=== PATIENT | female | born 1970 ===

== ENCOUNTER 2018-09-24 19:31 | Emergency (ER) | payer MEDICARE, MEDICAID ==
[2018-09-24 19:34] VITALS: BP 129/73; PULSE 93; RESP 16; TEMP 98.3; O2SAT 98
[2018-09-24 20:43] LABS: BASO % 0.7 % (0.0-2.0); EOS # 0.1 K/uL (0.0-0.7); EOS % 1.1 % (0.0-4.0); HEMOGLOBIN 14.2 g/dL (12.0-16.0); LYMPH # 1.4 K/uL (1.0-4.3); LYMPH % 20.8 % (20.0-40.0); MEAN CELL VOLUME 95.1 fl (81.0-99.0); MEAN CORPUSCULAR HEMOGLOBIN 31.4 pg (27.0-31.0); MEAN PLATELET VOLUME 10.4 fl (7.2-11.7); MONO # 0.6 K/uL (0.0-0.8); MONO % 8.3 % (0.0-10.0); NEUT # 4.7 K/uL (1.8-7.0); NEUT % 69.1 % (50.0-75.0); NRBC % 0.1 % (0.0-0.0); RBC 4.53 Mil/uL (3.80-5.20); RED CELL DISTRIBUTION WIDTH 13.9 % (11.5-14.5); WHITE BLOOD COUNT 6.7 K/uL (4.8-10.8)
[2018-09-24 20:54] LABS: ALB/GLOB RATIO 1.2 (1.0-2.1); ALBUMIN 4.5 g/dL (3.5-5.0); ALT/SGPT 83 U/L (9-52); AST/SGOT 125 U/L (14-36); BLOOD UREA NITROGEN 17 mg/dl (7-17); CALCIUM 9.8 mg/dL (8.4-10.2); GFR NON-AFRICAN AMERICAN > 60
[2018-09-24 21:05] LABS: BARBITURATES, UR NEGATIVE (NEGATIVE); BENZODIAZEPINES, UR NEGATIVE (NEGATIVE); OPIATES, UR NEGATIVE (NEGATIVE); PHENCYCLIDINE, UR NEGATIVE (NEGATIVE)
--- NOTE | 2018-09-24 21:14 | ED PDOC ---
HPI: Psych/Substance Abuse Time Seen by Provider: 09/24/18 19:43 Chief Complaint (Nursing): Alcohol Ingestion Chief Complaint (Provider): Alcohol Ingestion ED Caveat: Intoxicated History Per: Patient History/Exam Limitations: intoxication Current Symptoms Are (Timing): Still Present Additional Complaint(s): Patient is a 47 year old female who presents to the emergency department with EMS for intoxication. Patient was sent from [facility] for evaluation. She admits to drinking alcohol and smoking marijuana. Patient has no specific complaints. PMD: No provider Past Medical History Reviewed: Historical Data, Nursing Documentation, Vital Signs Vital Signs: Last Vital Signs Temp 98.3 F 09/24/18 19:32 Pulse 93 H 09/24/18 19:32 Resp 16 09/24/18 19:32 BP 129/73 09/24/18 19:32 Pulse Ox 98 09/24/18 19:32 - Medical History PMH: No Chronic Diseases - Surgical History Surgical History: No Surg Hx - Family History Family History: States: Unknown Family Hx - Social History Alcohol: Occasional Drugs: Cannabis - Allergies Allergies/Adverse Reactions: Allergies Allergy/AdvReac Type Severity Reaction Status Date / Time No Known Allergies Allergy Verified 09/24/18 19:32 Review of Systems ROS Statement: Except As Marked, All Systems Reviewed And Found Negative Neurological: Positive for: Change in Speech, Other (intoxication) Physical Exam - Reviewed Nursing Documentation Reviewed: Yes Vital Signs Reviewed: Yes - Physical Exam Appears: Positive for: Non-toxic, No Acute Distress Head Exam: Positive for: ATRAUMATIC, NORMOCEPHALIC Skin: Positive for: Normal Color, Warm, Dry Eye Exam: Positive for: Normal appearance, EOMI, PERRL ENT: Positive for: Normal ENT Inspection Neck: Positive for: Normal, Painless ROM, Supple Cardiovascular/Chest: Positive for: Regular Rate, Rhythm. Negative for: Murmur Respiratory: Positive for: Normal Breath Sounds. Negative for: Respiratory Distress Gastrointestinal/Abdominal: Positive for: Normal Exam, Soft. Negative for: Tenderness Back: Positive for: Normal Inspection. Negative for: L CVA Tenderness, R CVA Tenderness, Vertebral Tenderness Extremity: Positive for: Normal ROM. Negative for: Pedal Edema, Deformity Neurologic/Psych: Positive for: Alert, Oriented. Negative for: Motor/Sensory Deficits - Laboratory Results Result Diagrams: 09/24/18 20:24 09/24/18 20:24 Lab Results: Total Bilirubin 0.4 mg/dl (0.2-1.3) 09/24/18 20:24 AST 125 U/L (14-36) H 09/24/18 20:24 ALT 83 U/L (9-52) H 09/24/18 20:24 Alkaline Phosphatase 215 U/L (38-126) H 09/24/18 20:24 Total Protein 8.3 G/DL (6.3-8.2) H 09/24/18 20:24 Albumin 4.5 g/dL (3.5-5.0) 09/24/18 20:24 Globulin 3.8 gm/dL (2.2-3.9) 09/24/18 20:24 Albumin/Globulin Ratio 1.2 (1.0-2.1) 09/24/18 20:24 - ECG O2 Sat by Pulse Oximetry: 98 (RA) Pulse Ox Interpretation: Normal Medical Decision Making Medical Decision Making: Time: 1944 Impression: 47 year old intoxicated female. Will order labs and alcohol drug screen. Plan: --Crisis evaluation --ED urine --ED urine dipstick --Accucheck --Urinalysis 02:35 Labs reviewed no clinically significant abnormalities. Patient was evaluated by crisis and is cleared for discharge. Diagnosis is substance abuse. Scribe Attestation: Documented by Ken Renner, acting as a scribe for Jesus Patterson MD. Provider Scribe Attestation: All medical record entries made by the Scribe were at my direction and personally dictated by me. I have reviewed the chart and agree that the record accurately reflects my personal performance of the history, physical exam, medical decision making, and the department course for this patient. I have also personally directed, reviewed, and agree with the discharge instructions and disposition. Disposition - Clinical Impression Clinical Impression: Substance abuse - Patient ED Disposition Is Patient to be Admitted: No - Disposition Disposition: Routine/Home Disposition Time: 02:35 Condition: STABLE Additional Instructions: EDISON GARCIA, thank you for letting us take care of you today. Your provider was Jessu Patterson MD and you were treated for POSS ETOH. The emergency medical care you received today was directed at your acute symptoms. If you were prescribed any medication, please fill it and take as directed. It may take sev eral days for your symptoms to resolve. Return to the Emergency Department if your symptoms worsen, do not improve, or if you have any other problems. Please contact your doctor or call one of the physicians/clinics you have been referred to that are listed on the Patient Visit Information form that is included in your discharge packet. Bring any paperwork you were given at discharge with you along with any medications you are taking to your follow up visit. Our treatment cannot replace ongoing medical care by a primary care provider outside of the emergency department. Thank you for allowing the [facility] team to be part of your care today. If you had an X-Ray or CT scan: A Radiologist will review the ED reading if any change in treatment is needed we will contact you. If you had a blood, urine, or wound culture: It will take several days for the results, if any change in treatment is needed we will contact you. If you had an STI test: It will take 48 hours for the results. Please call after 1 week if you have not heard back. Instructions: Drug Abuse and Drug Addiction (DC) Forms: [employer] (Belarusian)
== END 2018-09-25 03:20 | disposition home or self-care (01) ==
LOC: H.ER 19:31
DX: F12.90 Cannabis use, unspecified, uncomplicated (principal)
CPT/HCPCS: 80053; 81025; 82948; 85025; 99284; G0480

== ENCOUNTER 2018-09-26 16:50 | Emergency (ER) | payer MEDICARE, MEDICAID ==
[2018-09-26 16:58] VITALS: TEMP 98
--- NOTE | 2018-09-26 17:35 | ED PDOC ---
HPI: Psych/Substance Abuse Time Seen by Provider: 09/26/18 17:04 Chief Complaint (Nursing): Substance Abuse Chief Complaint (Provider): Drug abuse Additional Complaint(s): Pt sent by residential living home for evaluation, states she smelled like alcohol and marijuana. Pt denies recent marijuana use, no alcohol use. Past Medical History Reviewed: Nursing Documentation, Vital Signs Vital Signs: Last Vital Signs Temp 98 F 09/26/18 16:54 Pulse 110 H 09/26/18 16:54 Resp 20 09/26/18 16:54 BP 126/90 09/26/18 16:54 Pulse Ox 100 09/26/18 16:54 - Medical History PMH: Denies: Diabetes, Hepatitis, HIV, HTN, Seizures, Sexually Transmitted Disease - Family History Family History: States: Unknown Family Hx - Social History Alcohol: None Drugs: Cannabis - Allergies Allergies/Adverse Reactions: Allergies Allergy/AdvReac Type Severity Reaction Status Date / Time No Known Allergies Allergy Verified 09/26/18 16:54 Review of Systems Neurological: Negative for: Headache, Dizziness Psych: Negative for: Depression, Suicidal ideation Physical Exam - Reviewed Nursing Documentation Reviewed: Yes Vital Signs Reviewed: Yes - Physical Exam Appears: Positive for: Well, No Acute Distress Head Exam: Positive for: ATRAUMATIC, NORMAL INSPECTION Skin: Positive for: Normal Color, Warm, Dry Eye Exam: Positive for: Normal appearance, EOMI, PERRL Cardiovascular/Chest: Positive for: Regular Rate, Rhythm Respiratory: Positive for: Normal Breath Sounds Neurological/Psych: Positive for: Awake, Alert, Oriented (X 3), Gait (Steady), medical officer psychiatry II-XII - ECG O2 Sat by Pulse Oximetry: 100 Medical Decision Making Medical Decision Makin yo female with marijuana abuse. - UDS - alcohol level Disposition - Clinical Impression Clinical Impression: History of marijuana use - Disposition Disposition: Routine/Home Disposition Time: 19:00 Condition: STABLE Instructions: Marijuana Use and Addiction Forms: [employer] [facility] (Wolof)
[2018-09-26 19:08] LABS: BARBITURATES, UR NEGATIVE (NEGATIVE); BENZODIAZEPINES, UR NEGATIVE (NEGATIVE); OPIATES, UR NEGATIVE (NEGATIVE); PHENCYCLIDINE, UR NEGATIVE (NEGATIVE)
[2018-09-26 19:42] VITALS: BP 121/78; PULSE 70; RESP 18
[2018-09-27 09:52] VITALS: O2SAT 100
== END 2018-09-26 19:42 | disposition home or self-care (01) ==
LOC: H.ER 16:50
DX: F12.11 Cannabis abuse, in remission (principal)
CPT/HCPCS: 81025; 99283; G0480